=== PATIENT | female | born 1985 | race African-American/Black ===

== ENCOUNTER 2017-12-28 11:44 | Emergency (ER) | payer OTHER ==
--- NOTE | 2017-12-28 11:57 | PDOC ---
History of Present Illness - General Chief Complaint: Psychiatric Stated Complaint: SOB, LIGHTHEADED Time Seen by Provider: 12/28/17 11:50 History Source: Patient Exam Limitations: No Limitations - History of Present Illness Initial Comments: 12/28/17 11:54 32 y/o female with history of panic attacks presents to ER via EMS with SOB and throat closing up with some tightness and fluttering in chest. No pain in back or arm or jaw. Just got off phone with from a mild argument. Denies leg pain, BCP. However flew back from [place] this weekend. No fall or trauma. No recent surgeries. Denies chest pain. 12/28/17 11:57 12/28/17 12:20 Upon further questioning, pt would like an STD panel done. Denies vaginal discharge. Wants GC/Chlamydia done and Syphilis at this time. States will follow up with PMD for further tests. Timing/Duration: reports: just prior to arrival Past History - Past Medical History Allergies/Adverse Reactions: Allergies Allergy/AdvReac Type Severity Reaction Status Date / Time No Known Allergies Allergy Verified 12/28/17 11:51 Home Medications: Ambulatory Orders NK [No Known Home Medication] 12/28/17 Review of Systems - Review of Systems Able to Perform ROS?: Yes Is the patient limited Lao proficient: No Constitutional: Yes: Symptoms Reported. No: Chills, Fever, Malaise Respiratory: Yes: Shortness of Breath. No: Cough Cardiac (ROS): No: Chest Pain ABD/GI: No: Nausea, Vomiting Integumentary: No: Bruising, Erythema All Other Systems: Reviewed and Negative *Physical Exam - Physical Exam General Appearance: Yes: Nourished, Appropriately Dressed, Mild Distress HEENT: positive: EOMI, [place], Normal ENT Inspection, Normal Voice, Symmetrical, Pharynx Normal Neck: positive: Trachea midline, Normal Thyroid, Supple. negative: Tender, Rigid, Carotid bruit Respiratory/Chest: positive: Lungs Clear, Normal Breath Sounds. negative: Chest Tender, Respiratory Distress Cardiovascular: positive: Regular Rhythm, Regular Rate, S1, S2. negative: Edema , JVD, Murmur Vascular Pulses: Femoral (R): 4+, Femoral (L): 4+, Carotid (R): 4+, Carotid (L) : 4+, Dorsalis-Pedis (R): 4+, Doralis-Pedis (L): 4+ Gastrointestinal/Abdominal: positive: Normal Bowel Sounds, Flat, Soft. negative : Tender, Organomegaly, Pulsatile Mass Lymphatic: negative: Adenopathy, Tenderness, Other Musculoskeletal: positive: Normal Inspection. negative: CVA Tenderness Extremity: positive: Normal Capillary Refill, Normal Inspection, Normal Range of Motion. 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 II-XII NML intact, Fully Oriented, Alert, Normal Mood/ Affect, Normal Response, Motor Strength 5/5 Heart Score/ECG Review - Age Age: </= 45 - Risk Factors Risk Factors Heart Score: No Hx Hypercholesterolemia, No Hx Hypertension, No Hx Diabetes, No Smoking History, No Positive family hx of cardiac disease, No Hx Obesity Based on the list above the patient has:: No risk factors known - ECG Intrepretation Rhythm: Regular Rhythm Comment:: 12/28/17 12:05 at 12:01 EKG shows NSR at rate 83 no STEMI - [place] Ellamore: Normal - ST and T Early Repolarization: No Non Specific ST-T Wave changes: No - ECG Impressions Normal ECG: Yes ED Treatment Course - LABORATORY CBC & Chemistry Diagram: 12/28/17 11:55 12/28/17 11:55 Progress Note - Progress Note Progress Note: Pt appears to have had a panic attack, feeling better. Due to recent flying and SOB, will obtain D-Dimer to r/o PE. Cardiac work up as well. Pt is doing better, CXR, labs and EKG all normal CXR NAD Will discharge home Pt is in agreement with plan *DC/Admit/Observation/Transfer Diagnosis at time of Disposition: Panic attack - Discharge Dispostion Disposition: HOME Condition at time of disposition: Stable Admit: No - Referrals - Patient Instructions Printed Discharge Instructions: DI for Panic Disorder Additional Instructions: Fluids, rest, Tylenol If worsen return to ER Follow up with PMD Await remaining blood work in 2-3 days - Post Discharge Activity
[2017-12-28 12:06] VITALS: TEMP 98; BMI 26.6
[2017-12-28 12:40] LABS: BASO % 0.7 % (0-2.0); EOS % 0.4 % (0-4.5); HEMATOCRIT 39.3 % (32.4-45.2); HEMOGLOBIN 13.2 GM/dl (10.7-15.3); LYMPH % 35.1 % (8-40); MCH 27.5 pg (25.7-33.7); MCHC 33.7 g/dl (32.0-36.0); MEAN CELL VOLUME 81.8 fl (80-96); MEAN PLT VOLUME 10.5 fl (7.5-11.1); MONO % 9.8 % (3.8-10.2); PLATELET COUNT 209 K/MM3 (134-434); RBC 4.81 M/mm3 (3.60-5.2); RDW 12.8 % (11.6-15.6); WHITE BLOOD COUNT 4.4 K/mm3 (4.0-10.8)
[2017-12-28 12:48] LABS: ALBUMIN 4.1 g/dl (3.5-5.0); ALK PHOS 44 U/L (32-92); ANION GAP 6 (8-16); BILIRUBIN,TOTAL 0.5 mg/dl (0.2-1.0); BLOOD UREA NITROGEN 11 mg/dl (7-18); CALCIUM 9.5 mg/dl (8.4-10.2); CHLORIDE 106 mmol/L (98-107); CO2 21 mmol/L (22-28); GLUCOSE,RANDOM 99 mg/dl (74-106); POTASSIUM 3.6 mmol/L (3.5-5.1); SGOT/AST 22 U/L (10-42); SGPT/ALT 12 U/L (10-40); SODIUM 133 mmol/L (136-145); TOT PROT 7.1 g/dl (6.4-8.3)
[2017-12-28 13:23] LABS: CREATININE < 0.8 mg/dl (0.6-1.3)
[2017-12-28 13:59] VITALS: BP 116/48; PULSE 79
--- NOTE | 2017-12-29 18:20 | EKG ---
Test Reason : Blood Pressure : / mmHG Vent. Rate : 083 BPM Atrial Rate : 083 BPM P-R Int : 146 ms QRS Dur : 082 ms QT Int : 360 ms P-R-T Axes : 071 068 058 degrees QTc Int : 423 ms NORMAL SINUS RHYTHM NO PREVIOUS ECGS AVAILABLE Confirmed by MD RONALD, IVANA ([id number]) on 12/29/2017 6:19:45 PM Referred By: DR GALLAGHER Confirmed By:IVANA CARDENAS MD
== END 2017-12-28 14:50 | disposition home or self-care (01) ==
LOC: FER 11:44
DX: F41.0 Panic disorder [episodic paroxysmal anxiety] (principal)
CPT/HCPCS: 36415; 71045-TC-FY; 80053; 84484; 84703; 85025; 85379; 86593; 93005; 99282-25

== ENCOUNTER 2018-07-03 19:34 | Emergency (ER) | payer OTHER ==
--- NOTE | 2018-07-03 19:40 | PDOC ---
History of Present Illness - General History Source: Patient Exam Limitations: No Limitations <Vivian Simmons - Last Filed: 07/03/18 20:32> - General History Source: Patient Exam Limitations: No Limitations <SantosierraJose RamonvidhyaCindy yorkcaityneva Brunilda - Last Filed: 07/03/18 23:40> - General Chief Complaint: Tachycardia Stated Complaint: FAST HR Time Seen by Provider: 07/03/18 19:39 - History of Present Illness Initial Comments: 07/03/18 20:33 The patient is a 20 weeks 33 year old female, with a significant PMH of hyperthyroidism, who presents to the emergency department with palpitation for the past 3 days. The patient states she went shopping 3 days ago when she first felt a sudden onset of SOB, palpitation and subjective fever. The patient reports intermittent SOB and palpitation worsened today with a heartbeat of 96 ( normal 80s bpm) endorsing associated symptoms of chest pain and right arm pain. The patient reports she was recently diagnosed with hyperthyroidism and has scheduled an appointment to see an Oil Program Compliance Specialist next week. The patient denies headache and dizziness. Denies fever, chills, nausea, vomit, diarrhea and constipation. Denies dysuria, frequency, urgency and hematuria. PAST MEDICAL HISTORY: no significant history PAST SURGICAL HISTORY: no significant history FAMILY HISTORY: no pertinent history SOCIAL HISTORY: Pt lives with family and is employed. MEDICATIONS: reviewed ALLERGIES: As per nursing notes Adult ROS General: No fevers or chills, no weakness, no weight loss HEENT: No change in vision. No sore throat,. No ear pain CardioVascular: +Palpation and SOB. Respiratory:No cough, or wheezing. Gastrointestinal: no nausea, vomiting, diarrhea or constipation, No rectal bleeding Genitourinary: No dysuria, hematuria, or frequency Musculoskeletal: No joint or muscle pain or swelling Neurologic: No headache, vertigo, dizziness or loss of consciousness Psychiatric: nor depression Skin: No rashes or easy bruising Endocrine: no increased thirst or abnormal weight change Allergic: no skin or latex allergy All other systems reviewed and normal Adult Exam: General: Well-nourished well-developed individual, no acute distress HEENT: Throat: Normal, tonsils normal, no erythema or exudate Neck: Supple, no meningeal signs, no lymphadenopathy Eyes:Pupils equal reactive and round, extraocular motion intact Chest: Nontender to palpation Cardiac: S1-S2 normal, regular rate and rhythm, no murmurs rubs or gallops Respiratory: Lungs clear to auscultation bilateral Abdomen: Soft, nondistended, normal bowel sounds, nontender to palpation diffusely Extremities: Warm, dry, no cyanosis, clubbing, or edema Skin: No rashes Neuro: Alert and oriented x3, nonfocal exam, grossly intact, normal gait Psych: Normal mood and affect (Vivian Simmons) 07/03/18 20:12 A portion of this note was documented by scribe services under my direction. I have reviewed the details of the note, within reason, and agree with the documentation. The case summary and management plan written by me. Medical decision making: This is a 33-year-old female who is 20 weeks and comes in complaining of pleuritic type chest pain associated with some dyspnea and palpitations. Patient has history significant for hypothyroidism. However it is not being treated and just followed as it was diagnosed shortly after she became . I will obtain a workup including CBC, comp, d-dimer, cardiac enzymes, EKG. will consider additional imaging if d-dimer is elevated as PE is a concern given her . Differential includes hyperthyroidism, palpitations, anxiety, pleurisy, PE, cardiac abnormalities, viral etiology. 07/03/18 22:16 Patient's d-dimer was markedly elevated at 1800. This is most likely related to however given the degree of elevation and no available reference values for gestational age of her by the lab I going to go ahead and do ultrasound Dopplers of patient's legs as well as her one arm that was bothering her. If ultrasound Dopplers are negative then I will call patient's OB and discuss with them the best course of action. 07/03/18 23:32 Patient reevaluation Patient is comfortable at rest there is no dyspnea at rest there is no tachycardia and patient was out complaints. Patient is ultrasound Doppler was negative for any DVT of bilateral lower extremities and right upper extremity. Call the patient's OB doctor discussed the patient with her OB doctor. Her OB doctor is aware of the workup that we did as well as the results. As per her OB doctor d-dimer is in women are always elevated and can be as elevated as hers. Given the fact that she has had a complete workup Dr. Rafy Raymundo recommends that we go ahead and discharge her and she will see her or one of her partners will see her in the OB office in the morning. (Melanie Huang I) Past History <Vivian Simmons - Last Filed: 07/03/18 20:32> - Past Medical History COPD: No Diabetes: No HTN: No Hypercholesterolemia: No - Suicide/Smoking/Psychosocial Hx Smoking History: Never smoked Hx Alcohol Use: Yes Drug/Substance Use Hx: No Substance Use Type: Alcohol <Melanie Huang I - Last Filed: 07/03/18 23:40> - Past Medical History Allergies/Adverse Reactions: Allergies Allergy/AdvReac Type Severity Reaction Status Date / Time codeine Allergy Verified 07/03/18 19:37 Home Medications: Ambulatory Orders Doxylamine Succinate/Vit B6 [Diclegis Dr 10-10 mg Tablet] 1 each PO DAILY No122/Iron/Folic Acid [ Multi Tablet] 1 each PO DAILY 07/03/18 - Vital Signs Last Vital Signs Temp Pulse Resp BP Pulse Ox 98.4 F 97 H 18 101/58 98 07/03/18 19:34 07/03/18 19:34 07/03/18 19:34 07/03/18 19:34 07/03/18 19:34 ED Treatment Course - LABORATORY CBC & Chemistry Diagram: 07/03/18 20:24 07/03/18 20:24 <Vivian Simmons - Last Filed: 07/03/18 20:32> - LABORATORY CBC & Chemistry Diagram: 07/03/18 20:24 07/03/18 20:24 <Melanie Huang I - Last Filed: 07/03/18 23:40> - ADDITIONAL ORDERS Additional order review: Laboratory Results 07/03/18 07/03/18 07/03/18 20:30 20:24 20:24 D-Dimer Sodium 134 L Potassium 3.7 Chloride 107 Carbon Dioxide 21 L Anion Gap 6 L BUN 5 L Creatinine 0.6 Creat Clearance w eGFR > 60 Random Glucose 120 H D Calcium 8.3 L Total Bilirubin 0.7 AST 23 ALT 17 D Alkaline Phosphatase 45 Creatine Kinase 72 Troponin I < 0.03 Total Protein 6.1 L Albumin 3.0 L TSH 0.40 07/03/18 20:24 D-Dimer 1800 H Sodium Potassium Chloride Carbon Dioxide Anion Gap BUN Creatinine Creat Clearance w eGFR Random Glucose Calcium Total Bilirubin AST ALT Alkaline Phosphatase Creatine Kinase Troponin I Total Protein Albumin TSH 07/03/18 20:24 RBC 3.94 MCV 84.1 MCHC 32.5 RDW 13.8 MPV 10.4 Neutrophils % 72.6 Lymphocytes % 18.4 Monocytes % 7.4 Eosinophils % 0.2 Basophils % 1.4 - RADIOLOGY Radiology Studies Ordered: Category Date Time Status DUPLEX VASCUL US-1 ARM [US] Stat Ultrasound 07/03/18 22:18 Completed DUPLEX VASCUL US-2LEGS [US] Stat Ultrasound 07/03/18 22:18 Completed - Medications Given in the ED: ED Medications Discontinued Medications Generic Name Dose Route Start Last Admin Trade Name Freq PRN Reason Stop Dose Admin Sodium Chloride 1,000 mls @ 1,000 mls/hr 07/03/18 19:49 07/03/18 20:28 Normal Saline - IV 07/03/18 20:48 1,000 mls/hr .Q1H ONE Administration *DC/Admit/Observation/Transfer <Vivian Simmons - Last Filed: 07/03/18 20:32> - Discharge Dispostion Decision to Admit order: No <Melanie Huang I - Last Filed: 07/03/18 23:40> Diagnosis at time of Disposition: Intermittent palpitations - Discharge Dispostion Disposition: HOME Condition at time of disposition: Stable - Patient Instructions Additional Instructions: Call your OB doctor in the morning and get an appointment tomorrow for follow- up with either your doctor or someone in the group. When you go see her OB doctor bring copies of your blood work and test results. Return to the emergency department immediately with ANY new, persistent or worsening symptoms. Continue any medications as previously prescribed by your physician. You should follow up with your primary doctor as soon as possible regarding today's emergency department visit. . Please make sure your doctor reviews the results of your emergency evaluation. Thank you for coming to the Emergency Department today for your care. It was a pleasure to see you today. Please note that your evaluation is INCOMPLETE until you follow-up with your doctor. - Attestations Scribe Attestion: 07/03/18 20:40 Documentation prepared by Vivian Simmons, acting as medical aides teacher for Melanie Huang MD. ([place],Vivian)
[2018-07-03 19:42] VITALS: BP 101/58; PULSE 97; TEMP 98.4; BMI 27.4
[2018-07-03] MEDS ORDERED: SODIUM CHLORIDE 1,000 ML IV ONE (19:49)
[2018-07-03 20:33] LABS: BASO % 1.4 % (0-2.0); EOS % 0.2 % (0-4.5); HEMATOCRIT 33.1 % (32.4-45.2); HEMOGLOBIN 10.8 GM/dl (10.7-15.3); LYMPH % 18.4 % (8-40); MCH 27.4 pg (25.7-33.7); MCHC 32.5 g/dl (32.0-36.0); MEAN CELL VOLUME 84.1 fl (80-96); MEAN PLT VOLUME 10.4 fl (7.5-11.1); MONO % 7.4 % (3.8-10.2); NEUT % 72.6 % (42.8-82.8); PLATELET COUNT 207 K/MM3 (134-434); RBC 3.94 M/mm3 (3.60-5.2); RDW 13.8 % (11.6-15.6); WHITE BLOOD COUNT 7.9 K/mm3 (4.0-10.8)
[2018-07-03 20:43] LABS: ALK PHOS 45 U/L (32-92); ANION GAP 6 MMOL/L (8-16); BILIRUBIN,TOTAL 0.7 mg/dl (0.2-1.0); BLOOD UREA NITROGEN 5 mg/dl (7-18); CALCIUM 8.3 mg/dl (8.4-10.2); CHLORIDE 107 mmol/L (98-107); CO2 21 mmol/L (22-28); CREATININE 0.6 mg/dl (0.6-1.3); GLUCOSE,RANDOM 120 mg/dl (74-106); POTASSIUM 3.7 mmol/L (3.5-5.1); SGOT/AST 23 U/L (10-42); SGPT/ALT 17 U/L (10-40); SODIUM 134 mmol/L (136-145); TOT PROT 6.1 g/dl (6.4-8.3)
--- NOTE | 2018-07-04 08:47 | EKG ---
Test Reason : Blood Pressure : / mmHG Vent. Rate : 096 BPM Atrial Rate : 096 BPM P-R Int : 142 ms QRS Dur : 080 ms QT Int : 326 ms P-R-T Axes : 057 070 056 degrees QTc Int : 411 ms NORMAL SINUS RHYTHM POSSIBLE LEFT ATRIAL ENLARGEMENT BORDERLINE ECG WHEN COMPARED WITH ECG OF 28-DEC-2017 12:01, NO SIGNIFICANT CHANGE WAS FOUND Confirmed by JULIANA CASTELLON, AIYANA ([id number]) on 07/04/2018 8:46:42 AM Referred By: DR HUNT Confirmed By:AIYANA ANDREWS MD
== END 2018-07-03 23:44 | disposition home or self-care (01) ==
LOC: FER 19:34
PROC: 3E0337Z Introduction of Electrolytic and Water Balance Substance into Peripheral Vein, Percutaneous Approach (ICD-10-PCS; principal; 2018-07-03)
DX: O26.892 Other specified pregnancy related conditions, second trimester (principal); Z3A.20 20 weeks gestation of pregnancy; R00.2 Palpitations
CPT/HCPCS: 36415; 80053; 82550; 84443; 84484; 85025; 85379; 93005; 93970-TC; 93971; 99283-25; J7030